=== PATIENT | female | born 2000 | race Hispanic/Latino ===

== ENCOUNTER 2022-03-18 20:11 | Day surgery (SDC) | payer OTHER ==
[2022-03-18 20:37] VITALS: BMI 33.8
[2022-03-18] MEDS ORDERED: hydrALAZINE 20 MG/ML VIAL SLOW IVP PRN (21:46)
== END 2022-03-18 21:44 | disposition home or self-care (01) ==
LOC: CSHLD/OP 20:11
PROVIDERS: ATTEND Obstetrics & Gynecology
DX: O47.1 False labor at or after 37 completed weeks of gestation (principal); Z3A.37 37 weeks gestation of pregnancy

== ENCOUNTER 2022-03-21 19:25 | Day surgery (SDC) | payer OTHER ==
[2022-03-21 19:51] VITALS: BMI 34.3
[2022-03-21] MEDS ORDERED: hydrALAZINE 20 MG/ML VIAL SLOW IVP PRN (21:03)
== END 2022-03-21 22:04 | disposition home or self-care (01) ==
LOC: CSHLD/OP 19:25
PROVIDERS: ATTEND Obstetrics & Gynecology
DX: O47.1 False labor at or after 37 completed weeks of gestation (principal); O16.3 Unspecified maternal hypertension, third trimester; Z3A.38 38 weeks gestation of pregnancy; Z79.82 Long term (current) use of aspirin; Z79.899 Other long term (current) drug therapy
CPT/HCPCS: 99283

== ENCOUNTER 2022-03-22 00:14 | Inpatient (IN) | payer MEDICAID, OTHER, SELFPAY ==
[2022-03-22] MEDS ORDERED: hydrALAZINE 20 MG/ML VIAL SLOW IVP PRN ×2 (00:52→15:09)
[2022-03-22 01:10] VITALS: BMI 34.0
[2022-03-22] MEDS ORDERED: Ondansetron PF 4 MG/2 ML Vial IVP PRN ×3 (01:44→15:09)
[2022-03-22] MEDS ORDERED: Promethazine HCl 25 MG/ML VIAL IM PRN ×3 (01:44→15:09)
[2022-03-22] MEDS ORDERED: Lidocaine 1% (PF) 30 ML VIAL SC PRN (01:44)
[2022-03-22] MEDS ORDERED: NS w/ Oxytocin 30 units 500 ML IV SCH ×2 (01:45→15:09)
[2022-03-22 01:59] LABS: Mean Corpuscular HGB CONC 35.3 g/dL (32.0-36.0); Mean Corpuscular Hemoglobin 29.3 pg (27.0-33.0); Mean Platelet Volume 12.8 fl (7.4-10.4); Platelet Count 221 10x3/uL (150-450); RBC Distribution Width 13.4 % (11.5-14.5); Red Blood Cell (RBC) Count 5.12 10x6/uL (3.90-5.03); White Blood Cell (WBC) Count 9.8 10x3/uL (3.5-10.5)
[2022-03-22] MEDS ORDERED: Fentanyl 2 mcg/Bup 0.1% Cadd 100 ML ONE ×2 (02:13→09:44)
[2022-03-22 02:28] LABS: Syphilis Antibody Nonreactive (Nonreactive); Syphilis Antibody Index 0.16 S/CO (<1.00 Non-Reactive)
[2022-03-22 02:29] LABS: Hep B Surf Ag Non-Reactive S/CO (NonReactive)
[2022-03-22 02:30] LABS: HBSAg Index 0.18 S/CO (0-0.99)
[2022-03-22] MEDS ORDERED: diphenhydrAMINE 50 MG/ML VIAL IVP PRN (03:08)
[2022-03-22] MEDS ORDERED: Naloxone HCl 0.4 mg/ml Vial IVP PRN ×2 (03:08)
[2022-03-22] MEDS ORDERED: Moisturizing Cream (Eucerin) 113 GM JAR TOP PRN (03:08)
[2022-03-22] MEDS ORDERED: Acetaminophen 325 MG TAB PO PRN (03:08)
[2022-03-22] MEDS ORDERED: ePHEDrine Sulfate 50 MG/10 ML VIAL SLOW IVP PRN (03:08)
[2022-03-22] MEDS ORDERED: Communication Order-Pharmacy FS SCH (03:15)
[2022-03-22] MEDS ORDERED: Fentanyl 2 mcg/Bupivacaine 0.1% Cassette 100 ML EPIDURAL SCH (03:15)
[2022-03-22] MEDS ORDERED: Lactated Ringer's 500 ML IV PRN (03:26)
[2022-03-22 07:16] LABS: SARS-CoV-2 NAA Rapid Test Not Detected (NotDetected)
[2022-03-22] MEDS: Lactated Ringer's 1,000 ML IV SCH (14:32)
[2022-03-22] MEDS ORDERED: Lanolin Ointment 7 GM TUBE TOP PRN (15:09)
[2022-03-22] MEDS ORDERED: Methylergonovine 0.2 MG/ML VIAL IM PRN (15:09)
[2022-03-22] MEDS ORDERED: Milk Of Magnesia 30 ML UDCUP PO PRN (15:09)
[2022-03-22] MEDS ORDERED: Misoprostol 200 MCG TAB VAG PRN (15:09)
[2022-03-22] MEDS ORDERED: Benzocaine-Menthol 82.5 ML CAN TOP PRN (15:09)
[2022-03-22] MEDS ORDERED: Boostrix 0.5 ML (Tdap) VIAL IM ONE (15:09)
[2022-03-22] MEDS ORDERED: Bisacodyl 10 MG SUPP PR PRN (15:09)
[2022-03-22] MEDS ORDERED: Ibuprofen 800 MG TAB PO SCH (16:00)
[2022-03-22] MEDS: Ferrous Sulfate 325 MG TAB PO SCH (17:08)
[2022-03-22] MEDS: Ibuprofen 800 MG TAB PO SCH (21:36)
[2022-03-22] MEDS: Docusate 100 MG CAP PO SCH (21:36)
[2022-03-23] MEDS: Ibuprofen 800 MG TAB PO SCH ×3 (05:18→21:42)
[2022-03-23] MEDS: Ferrous Sulfate 325 MG TAB PO SCH (07:18)
[2022-03-23] MEDS: Docusate 100 MG CAP PO SCH ×2 (07:45→21:42)
[2022-03-23] MEDS: Prenatal Vitamin 1 TAB PO SCH (07:45)
[2022-03-24] MEDS: Ibuprofen 800 MG TAB PO SCH (05:37)
[2022-03-24] MEDS: Ferrous Sulfate 325 MG TAB PO SCH (08:37)
[2022-03-24] MEDS: Prenatal Vitamin 1 TAB PO SCH (08:38)
[2022-03-24] MEDS: Docusate 100 MG CAP PO SCH (08:39)
[2022-03-24 11:11] VITALS: BP 125/76; TEMP 98.4
== END 2022-03-24 13:10 | disposition home or self-care (01) | DRG 807 ==
LOC: CSHLD/OP 00:14 → CSHLD 02:02 → CSHPP 15:15
PROVIDERS: ADMIT Family Medicine; ATTEND Family Medicine
PROC: 10E0XZZ Delivery of Products of Conception, External Approach (ICD-10-PCS; principal; 2022-03-22)
PROC: 0KQM0ZZ Repair Perineum Muscle, Open Approach (ICD-10-PCS; 2022-03-22)
PROC: 10907ZC Drainage of Amniotic Fluid, Therapeutic from Products of Conception, Via Natural or Artificial Opening (ICD-10-PCS; 2022-03-22)
PROC: 0UQMXZZ Repair Vulva, External Approach (ICD-10-PCS; 2022-03-22)
DX: O10.92 Unspecified pre-existing hypertension complicating childbirth (principal); Z37.0 Single live birth; Z20.822 Contact with and (suspected) exposure to COVID-19; Z3A.38 38 weeks gestation of pregnancy; Z79.82 Long term (current) use of aspirin; Z79.899 Other long term (current) drug therapy; O70.1 Second degree perineal laceration during delivery; O76 Abnormality in fetal heart rate and rhythm complicating labor and delivery; O69.81X0 Labor and delivery complicated by cord around neck, without compression, not applicable or unspecified
CPT/HCPCS: 36415; 51702; 85027; 86780; 86850; 86900; 86901; 87340; 99285; J0595; U0002